=== PATIENT | female | born 1950 | race Two or more races ===

== ENCOUNTER 2022-01-01 11:41 | Emergency (ER) | payer MEDICARE, OTHER ==
[~2022-01-01] VITALS: Ht 162.6 cm; Wt 83.0 kg
--- NOTE | 2022-01-01 12:16 | NUR ---
[facility] ESTABLISHED, BLOOD DRAWN AND SENT TO LAB
[2022-01-01 12:26] LABS: BASOPHILS # (AUTO) 0.1 K/uL (0.0-0.2); BASOPHILS % (AUTO) 0.8 % (0.0-2.0); EOSINOPHILS % (AUTO) 0.8 % (0.0-6.0); HEMATOCRIT 32 % (33-45); HEMOGLOBIN 10.9 g/dL (11.5-14.8); LYMPHOCYTES # (AUTO) 1.3 K/uL (0.8-4.8); LYMPHOCYTES % (AUTO) 16.5 % (20.0-44.0); MEAN CORPUSCULAR HGB CONC 34 g/dl (31.0-36.0); MEAN CORPUSCULAR VOLUME 87 fL (82-100); MONOCYTES # (AUTO) 0.6 K/uL (0.1-1.30); MONOCYTES % (AUTO) 7.6 % (2.0-12.0); NEUTROPHILS # (AUTO) 5.7 K/uL (1.8-8.9); NEUTROPHILS % (AUTO) 74.3 % (43.0-81.0); PLATELET COUNT (AUTO) 241 K/uL (150-450); RED BLOOD CELL COUNT(AUTO) 3.65 MIL/uL (4.0-5.2); WHITE BLOOD COUNT (AUTO) 7.7 K/uL (4.3-11.0)
[2022-01-01 12:46] LABS: CARBON DIOXIDE 29 mmol/L (21-32); CHLORIDE 101 mmol/L (98-107); GLUCOSE 208 mg/dL (74-106); POTASSIUM 4.4 mmol/L (3.5-5.1); SODIUM SERUM 136 mmol/L (136-145); UREA NITROGEN, BLOOD 18 mg/dL (7-18)
[2022-01-01] MEDS ORDERED: MORPHINE SULFATE INJ 2 MG/ML DISP.SYRIN ONE ×2 (13:01→13:16)
--- NOTE | 2022-01-01 13:02 | NUR ---
ORDER NOTED FROM DR SEBASTIAN FOR MORPHINE 2MG IV FOR PT COMPLAINT OF BREAST/CHEST PAIN; ORDER NOTED AND VERIFIED.
[2022-01-01 13:25] LABS: BILIRUBIN,DIRECT 0.2 mg/dL (0.0-0.2); BILIRUBIN,TOTAL 0.7 mg/dL (0.2-1.0)
[2022-01-01 13:26] LABS: ALANINE AMINOTRANSFERASE 50 U/L (12-78); ALBUMIN 3.6 g/dL (3.4-5.0); ALKALINE PHOSPHATASE 60 U/L (46-116); ASPARTATE AMINOTRANSFERASE 36 U/L (15-37)
[2022-01-01 13:27] LABS: TOTAL PROTEIN, SERUM 7.4 g/dL (6.4-8.2)
[2022-01-01] MEDS ORDERED: MORPHINE SULFATE INJ 2 MG/ML DISP.SYRIN IV ONE ×2 (13:30)
[2022-01-01] MEDS ORDERED: IV NS 0.9% 250 ML IV ONE (13:55)
[2022-01-01] MEDS ORDERED: IOHEXOL-300 100 ML VIAL IV ONE (13:55)
[2022-01-01] MEDS ORDERED: CT SWABBABLE VALVE TRANS SET 1 EA INFUS.SET MC ONE (13:56)
[2022-01-01] MEDS ORDERED: CEFEPIME 1 GM in IV D5W 50 ML IV ONE (15:00)
[2022-01-01] MEDS ORDERED: VANCOMYCIN 1 GM in IV D5W 250 ML IV ONE (15:00)
--- NOTE | 2022-01-01 15:14 | NUR ---
DR MURDOCK SURGEON ([facility]) PAGED [phone]
--- NOTE | 2022-01-01 15:52 | NUR ---
CALLED DR. MURDOCK [phone] PER CRYSTAL PT WILL BE PAGED.
[2022-01-01] MEDS ORDERED: IV NS 0.9% 1,000 ML IV ONE (17:30)
--- NOTE | 2022-01-01 17:53 | NUR ---
CALLED DR. MURDOCK [phone] OPTION 1,2 PER EPI LIN IS [employer] BROKER WILL BE PAGED.
--- NOTE | 2022-01-01 17:57 | NUR ---
DR LIN [employer] T[employer]LES SPEAKING WITH DR. MATHUR.
[2022-01-01] MEDS ORDERED: HYDR-4209 PO (19:00)
[2022-01-01] MEDS ORDERED: SULF1TAB48 PO (19:00)
[2022-01-01] MEDS ORDERED: HYDROCODONE/APAP 5/325MG TABLET PO ONE (20:30)
[2022-01-01] MEDS ORDERED: HYDROCODONE/APAP 5/325MG TABLET ONE (20:31)
[2022-01-01] MEDS ORDERED: ONDA4TAB11 PO (20:36)
--- NOTE | 2022-01-01 21:11 | NUR ---
Patient discharged to home in stable condition. Written and verbal after care instructions given. Patient verbalizes understanding of instruction.
--- NOTE | 2022-01-01 21:11 | NUR ---
IV CANNULA REMOVED
[2022-01-01 21:12] VITALS: BP 106/60
== END 2022-01-01 21:12 | disposition home or self-care (01) ==
LOC: ER 11:45
DX: S20.152A Superficial foreign body of breast, left breast, initial encounter (principal); R07.89 Other chest pain; G89.18 Other acute postprocedural pain; I10 Essential (primary) hypertension; Z85.3 Personal history of malignant neoplasm of breast; X58.XXXA Exposure to other specified factors, initial encounter; Y93.89 Activity, other specified; Y92.89 Other specified places as the place of occurrence of the external cause; Y99.8 Other external cause status
CPT/HCPCS: 99285; 96365; 71260; 71045; 96367; 96361; 96375; 93005 ×2; 85025; 80048; 87040; 83605; 80076; 36415; 84484; 96376; J3370; J7060; J7050; J2270 ×2; J0692; Q9967